=== PATIENT | male | born 1990 | race Hispanic/Latino ===

== ENCOUNTER 2024-11-23 18:48 | Inpatient (IN) | payer BC, SELFPAY ==
[2024-11-23] VITALS (8 sets, daily range): BP systolic 143–197; BP diastolic 85–121; BMI 23.0
[2024-11-23 13:50] LABS: % Basophils 0.6 % (0-2); % Eosinophils 0.3 % (0-6); % Immature Granulocytes 0.3 % (0-0.5); % Lymphocytes 14.2 % (20.5-51.1); % Monocytes 6.8 % (1.7-9.3); % Neutrophils 77.8 % (42.2-75.2); Absolute Lymphocytes 0.4 10^3/uL (1.2-3.4); Absolute Monocytes 0.2 10^3/uL (0.1-0.6); Absolute Neutrophils 2.4 10^3/uL (1.4-6.5); Hematocrit 44.4 % (39.0-52.0); Hemoglobin 15.7 g/dL (13.0-18.0); Mean Corp Hgb Conc. 35.4 g/dL (33.0-37.0); Mean Corpuscular Hgb 32.2 pg (27.0-31.0); Mean Corpuscular Volume 91.2 fL (80.0-94.0); Nucleated Red Blood Cells % 0 % (-); Platelet Count 162 10^3/uL (130-400); Red Blood Cell Count 4.87 10^6/uL (4.70-6.10); Red Cell Dist. Width 12.9 % (11.5-14.5); White Blood Cell Count 3.1 10^3/uL (4.8-10.8)
[2024-11-23 14:04] LABS: Amphetamines Negative (Negative); Barbiturates Negative (Negative); Benzodiazepines Negative (Negative); Buprenorphine Negative (Negative); Cocaine Negative (Negative); Marijuana Negative (Negative); Methadone Negative (Negative); Methamphetamines Negative (Negative); Opiates Negative (Negative); Phencyclidine Negative (Negative); Tricyclic Antidepressants Negative (Negative)
[2024-11-23 14:09] LABS: ALT (SGPT) 439 U/L (0-50); Albumin 5.5 g/dl (3.5-5.0); Alcohol None Detected; Alkaline Phosphatase 119 U/L (38-126); Blood Urea Nitrogen 5 mg/dl (9-20); Calcium 11.5 mg/dl (8.4-10.2); Carbon Dioxide 34 mmol/L (22-30); Chloride 92 mmol/L (98-107); Glucose 107 mg/dl (70-99); Potassium 4.1 mmol/L (3.5-5.1); Sodium 134 mmol/L (135-145); Total Bilirubin 1.2 mg/dl (0.2-1.3); Total Protein 8.8 g/dl (6.3-8.2); eGFR > 60.00
[2024-11-23 14:39] LABS: AST (SGOT) 763 U/L (17-59)
--- NOTE | 2024-11-23 15:30 | ED.GENMED ---
History of Present Illness
General
Chief Complaint: Alcohol Problem
Source: patient
Exam Limitations: none
Time Seen by Provider: 11/23/24 15:07
Nursing documentation reviewed up to this point in time: agreed with
History of Present Illness
History of Present Illness:
34 y/o M
h/o congenital heart disease, bicuspid aortic valve; s/p 3 surgeries
here with shakiness, anxiety and tremors and n/v since yesterday
pt says he usuallyw as drinking alcohol on the weekends and 1-2 beers during the week at night
but then in the past 3 weeks since he has been out of work, he started driking in the morning and about 12-15 beers per day
he vomited his last normal drink approx 11/21 evening aroun d7 pm
he thenthe [facility] here and on the way, about 12 noon, he started havign tremors, anxiety and shakes
he has never had alcohol withdrwal before
he says he notice dtha the thougtht he hallucinated a thunder clap once but otherwise no hallucinations
he did try to sip alcohol and couldn't really tolearet it
no tylenol use
no fever/chills diarrhea
has some upper abd pain LUQ.
Past History
Past History
ED Past Medical History: Other (congential heart disease)
ED Past Surgical History: Cardiac
Social History
Tobacco: Non-smoker
Alcohol: Binge drinker
Drug: None
Personal:
Living: with family
Employment: Employed
Review of Systems
Review of Systems
Allergies reviewed?: Yes
All Other Systems: Not applicable
Phy Exam
Physical Exam
Physical Exam:
GENERAL: Alert , very anxious, tremulous, sweaty
EYE: pupils equal and reactive
NECK: Supple
ENT: o/p clr, dry mouth
CARDIAC: Regular rate and rhythm .
LUNGS: Clear breath sounds bilaterally, no acute respiratory distress, no wheezes/rales/rhonchi
ABDOMEN: Soft, LUQ tendneress; no r/g, no cvat, normal bowel sounds
NEUROLOGICAL: Alert and oriented, no focal neuro deficits, tremor at rest
SKIN: Warm and moist, diaphoretic
MUSCULOSKELETAL: No edema, well perfused. neg trever's sign
PSYCH: very anxious and agitated
ciwa 15
Scores
Withdrawal Assessment of Alcohol
Withdrawal Assessment Completed?: Yes
Nausea and Vomiting: Intermittent nausea with dry heaves
Tactile Disturbances: None
Tremor: Moderate, with patient's arms extended
Auditory Disturbances: Very mild harshness or ability to fighten
Paroxysmal Sweats: Beads of sweat obvious on forehead
Visual Disturbances: Not present
Anxiety: Moderately anxious, or guarded, so anxiety is inferred
Headache, Fullness in Head: Not present
Agitation: Moderately fidgety and restless
Orientation and clouding of sensorium: Oriented and can do serial additions
Total CIWA Score: 21
Alcohol Withdrawal Medication Recommendation: Equal to MSAS >11. Lorazepam 2-4mg IV NOW and re-assess q1hr
Course
Orders/Labs/Results
Orders:
Orders
11/23/24 13:19
Electrocardiogram (*1) Urgent
Reason for Study: Abdominal Pain
11/23/24 13:20
EKG- Treatment ONCE
11/23/24 13:29
Acetaminophen Urgent
Comment: ADD ON
Alcohol Urgent
Complete Blood Count/With Diff Urgent
Comprehensive Metabolic Panel Urgent
Hepatitis A Antibody, Total Urgent
Comment: ADD ON
Hepatitis B Surface Antibody Urgent
Comment: ADD ON
Hepatitis B Surface Antigen Urgent
Comment: ADD ON
Hepatitis C Antibody Urgent
Comment: ADD ON
Lipase Urgent
Comment: ADD ON
Magnesium Urgent
Comment: ADD ON
Phosphorus Urgent
Comment: ADD ON
11/23/24 13:31
Urine Drug Abuse Screen Urgent
Date Specimen was Collected: 11/23/24
Time Specimen was Collected: 13:19
11/23/24 15:07
Add On- LAB Urgent
Tests Added?: lipase
11/23/24 15:29
Lactated Ringers [Lr] 1,000 ml IV BOLUS
Lorazepam [Ativan] 1 mg IV NOW STA
Ondansetron Injectable [Zofran] 4 mg IV NOW STA
11/23/24 15:53
US Abdomen Complete/Upper Urgent
Comment:
Reason For Exam: alcohol abuse, vomiting, lfts high
11/23/24 16:55
Add On- LAB Urgent
Tests Added?: hepatitis panel (a, b suf ab, cynthia ag, c), and tylenol level
11/23/24 17:15
Lorazepam [Ativan] 1 mg IV NOW STA
11/23/24 18:15
Admit/Transfer Patient As Directed
Co-Sign Provider:
Level of Care: Inpatient admission
Assign to:: IMU- Intermediate Care
Physician / Group: frederic muhammad
Diagnosis: Alcohol withdrawal, alcohol abuse, hallucinations, transaminitis
Reason for Hospitalization: Alcohol withdrawal, alcohol abuse, hallucinations, transaminitis
Expected length of stay greater than two midnights?: Yes
ELOS- Estimated Length of Stay in days: 6
I certify the patient meets the requirements for IP care: Yes
Code Status As Directed
Resuscitation Status: Full Code
11/23/24 18:17
Add On- LAB Urgent
Tests Added?: mag, phos
11/23/24 18:19
PRN Pain Medication Management As Directed
May give lesser potent ordered pain med per pt: Yes
preference::
Protocol:: Medication orders for pain may be administered in a
manner that supports deferring to patient preference
when the pt is:
- Requesting an ordered lesser potent pain medication.
Least to most potent pain medications are defined
as: acetaminophen < NSAID < tramadol < opioids
(morphine, oxycodone, hydromorphone).
- Requesting a lesser dose of the same medication IF
ORDERED.
- Requesting a less intrusive route of administration
if both routes are prescribed by the provider (PO <
IV).
11/23/24 19:46
0.9% Sodium Chloride 1000 ml [Nss] 1,000 ml IV 100 mls/hr
0.9% Sodium Chloride [Nss (Preservative Free)] See Protocol IV PRN PRN
FOLic ACID [Folvite] 1 mg 0.9% Sodium Chloride 50 ml [Nss] 50 ml IV DAILYPRN
Lorazepam [Ativan] 1 mg IV Q1HPRN PRN
Lorazepam [Ativan] 1 mg PO Q2HPRN PRN
Lorazepam [Ativan] 2 mg IV Q1HPRN PRN
Phenobarbital Sodium [Phenobarbital] 260 mg 0.9% Sodium Chloride 100 ml [Nss] 100 ml IV NOW
11/23/24 19:46
Case Management Consult Once
Case Management Consult: Other
Comment: Substance abuse counseling
DIETARY CONSULT Routine
Reason for Consult: Nutrition support, possible refeeding guidelines
Activity As Directed
Activity Level: With Assistance
Intake/ Output As Directed
Frequency: Per unit guidelines
MSAS SCORE As Directed
MSAS Score 0-4: Repeat MSAS every 2 hours until 0-4 for three consecutive assessments, then every 4 hours x 48
hours.
MSAS Score 5-7: For MILD withdrawl symptoms. Repeat MSAS and RASS every 2 hours
MSAS Score 8-11: For MODERATE withdrawal symptoms. Repeat MSAS and RASS every 1 hour. Consider ICU or IMU
level of care.
MSAS Score > 11: For SEVERE withdrawal symptoms. Repeat MSAS and RASS every 1 hour. Notify provider, consider
ICU level of care.
MSAS Additional Instructions: If no improvement or no decrease in score from severe to moderate within 12
hours, consult psychiatry
MSAS Notify Provider: Notify provider if patient requires more than 10 mg of Lorazepam in eight hour period.
Pneumatic Compression Sleeves As Directed
Type: Knee high
Vital Signs As Directed
Frequency: Per unit guidelines
Weight As Directed
Frequency: Daily
Ot Eval And Treat Routine
Pt Eval And Treat Routine
Activity Level: With Assistance
DX Deep Vein Thrombosis Video Routine
11/23/24 21:44
B-Hydroxybutyrate Urgent
GGTP Urgent
PT/INR [Prothrombin Time] Urgent
Urinalysis Routine
Date Specimen was Collected: 11/23/24
Time Specimen was Collected: 21:33
11/23/24 22:00
Ondansetron Injectable [Zofran] 4 mg IV Q6HPRN PRN
Valsartan [Diovan] 160 mg PO HS
11/24/24 00:00
Thiamine Injection 200 mg IV Q8
11/24/24 06:00
Cardiovascular Evaluation IN AM
Complete Blood Count/With Diff IN AM
Comprehensive Metabolic Panel IN AM
Magnesium IN AM
11/24/24 08:00
FOLic ACID [Folvite] 1 mg PO DAILY
Phenobarbital Sodium [Phenobarbital] 97.5 mg IV TID
11/25/24 06:00
Complete Blood Count/With Diff IN AM
Comprehensive Metabolic Panel IN AM
11/26/24 06:00
Complete Blood Count/With Diff IN AM
Comprehensive Metabolic Panel IN AM
11/26/24 08:00
Phenobarbital [Luminal] 64.8 mg PO TID
11/26/24 20:00
Thiamine HCl [Vitamin B1] 100 mg PO BID
11/27/24 06:00
Complete Blood Count/With Diff IN AM
Comprehensive Metabolic Panel IN AM
11/28/24 06:00
Complete Blood Count/With Diff IN AM
Comprehensive Metabolic Panel IN AM
11/28/24 08:00
Phenobarbital [Luminal] 32.4 mg PO TID
Abnormal Lab Results
11/23/24
13:29
WBC 3.1 L 10^3/uL
(4.8-10.8)
MCH 32.2 H pg
(27.0-31.0)
Absolute Lymphs (auto) 0.4 L 10^3/uL
(1.2-3.4)
Neutrophils % 77.8 H %
(42.2-75.2)
Lymphocytes % 14.2 L %
(20.5-51.1)
Sodium 134 L mmol/L
(135-145)
Chloride 92 L mmol/L
(98-107)
Carbon Dioxide 34 H mmol/L
(22-30)
BUN 5 L mg/dl
(9-20)
Creatinine 0.6 L mg/dL
(0.7-1.3)
Glucose 107 H mg/dl
(70-99)
Calcium 11.5 H mg/dl
(8.4-10.2)
AST 763 H* U/L
(17-59)
ALT 439 H U/L
(0-50)
Total Protein 8.8 H g/dl
(6.3-8.2)
Albumin 5.5 H g/dl
(3.5-5.0)
Acetaminophen < 10 L ug/ml
(10-30)
11/23/24 13:29
11/23/24 13:29
Vital Signs
Initial and Last Documented VS:
Initial Vital Signs
Temp Pulse Resp BP Pulse Ox
36.7 C 89 18 197/107 100
11/23/24 13:11 11/23/24 13:11 11/23/24 13:11 11/23/24 13:11 11/23/24 13:11
Last Documented Vital Signs
Temp Pulse Resp BP Pulse Ox
36.7 C 75 26 156/93 97
11/23/24 23:00 11/23/24 22:00 11/23/24 22:00 11/23/24 22:00 11/23/24 22:00
MDM/Problems Addressed
Differential Diagnosis Includes:
alcohol withdrawal, pancreatiis, hepatitis
MDM/Problems Addressed:
dick henley 34 y/o M h/o congenital heart defect (bicuspid aortic valve, aortic insuff, s/p 3 surgeries) from out of town
alcohol withdrawal
has bene drinking starting in the [facility] for 3 weeks, 12+ beers daily; 2 days ago vomited a few times; then yesterday drove from [place] and started with withdrawal symptoms at noon; shakiness, nausea, sweats, anxiety, 1 hallucination
has had a few sips of alcohol; LUQ mild pain
hypertensive originaloly with CIWA 15
lfts up 700s/300s; bili/alk phos normal;
us shows gallstones, mild CBD dilation
d/w GI; dr. brown unlikely choledocho normal alk phos and bili
probably alcoholic hepatitis; added on hep panel, tylenol; IVF, ativan x 2
CIWA 9 prior to 2nd dose
*Critical Care Note
Total Time (30-74mins, 75-104mins- exclusive of procedures): Not Applicable
ED Attending Note
-
Portions of this chart may have been created with voice recognition software.� Occasional wrong word or��sound alike� substitutions may have occurred due to the inherent limitations of voice recognition software.
Discharge Plan
Departure
Patient Disposition: Admit
Date of Disposition: 11/23/24
Time of Disposition: 17:16
Admit to: Telemetry
Presentation/result/management discussed w/ accepting MD/DO: Hospitalist
Condition: Fair
Covid-19: Not Applicable
Discharge Problem:
Hepatitis, Alcohol withdrawal
Interventions
Interventions:
*Risk Screen - Suicide Last Done: 11/23/24 19:43
*General Assessment Last Done: 11/23/24 13:11
*Neglect/Abuse Screening Last Done: 11/23/24 13:11
ED- Fall Risk Assessment Last Done: 11/23/24 15:41
*ED COVID-19 Vaccine History Last Done: 11/23/24 19:43
*Nursing Disposition Last Done: 11/23/24 19:48
ED- Neurological Assessment Last Done: 11/23/24 15:41
ED-Psychological Assessment Last Done: 11/23/24 15:41
Discharge Date and Time
Discharge Date/Time: 11/23/24 19:49
[2024-11-23 15:52] LABS: Lipase 145 U/L (23-300)
[2024-11-23] MEDS: ATIVAN 1 MG IV ×2 (15:53→17:20)
[2024-11-23] MEDS: LR 1000 IV (15:54)
[2024-11-23] MEDS: ZOFRAN 4 MG IV (15:54)
[2024-11-23 17:44] LABS: Acetaminophen < 10 ug/ml (10-30)
--- NOTE | 2024-11-23 18:14 | HPS.HSE ---
Family Physician
-
Family Physician: NOT KNOW UNKNOWN - PT DOES
Chief Complaint
-
Nausea, vomiting, hand tremors, alcohol withdrawal
History of Present Illness
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
hours then woke up yesterday p.m. 7-8 had a sip of beer due to tremors in his hands he also had some nausea. He did drink 1 beer then at 12 AM he vomited. This morning according to his he appeared sweaty diaphoretic and shaking on exam in
triage and active alcohol withdrawal. He also reported 1 hallucination to the ER. He states he has plans to leave on Saturday to travel to [place] then leave from [place] back to [place] on Saturday to arrive by [facility]. He believes his
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 He states this is how his
family is his father and brother also wake up in the morning and have a beer before they have their coffee for the day then they started to drink in the afternoon I advised the patient this is alcohol abuse and the effects on his liver and potential
for alcohol withdrawal with seizure and he appeared shocked that consumption of alcohol can cause this.
He has past medical history of hypertension, alcohol abuse, VSD repair at age 8,coartication repair as child. Follows a branch mechanic in [place] had echo in December EF 65% moderate dilated mild hypertrophied left ventricle moderate AI bicuspid
aortic valve hypoplastic descending aorta tiny residual VSD he also had stress test December 2022 that was normal
Medical History
Past Medical History
Past Medical History: Reports Other
Additional Past Medical History:
HTN
Alcohol abuse
VSD repair at age 8,coartication repair as child.
Past Surgical History: Reports Other
Additional Past Surgical History:
VSD repair at age 8,coartication repair as child.
Social History
Tobacco: Non-smoker
Alcohol: Daily (12 beers daily weekends he will drink 12-18 beers during the spring and summer +3 days a week 1 glass of wine last drink 11/22/2024 at 12 AM)
Drug: None
Personal:
Living: With Family
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
Family History
Family History: Other (Father and brother alcohol abuse, father HTN, mother DM 2)
Allergies / Home Medications
Allergies reflects when Allergies were last updated in [facility].
Home Medications with original date entered in [facility]
Allergy/Medication List:
Allergies
Allergy/AdvReac Type Severity Reaction Status Date / Time
No Known Allergies Allergy Verified 11/23/24 13:11
Home Medications
therapeutic multivitamin 1 tab PO HS 11/23/24
valsartan 160 mg tablet 160 mg PO HS 11/23/24
Review of Systems
-
History Source: Patient
A 12 point ROS was completed and negative except as noted: Yes
Constitutional: Denies Fever or Chills
EENT: Denies Sore Throat or Runny Nose
Respiratory: Denies Cough or Trouble Breathing
Cardiac: Denies Chest Pain, Diaphoresis, Palpitations or Syncope
Abdomen/GI: Reports Nausea and Vomiting; Denies Abdominal Pain, Diarrhea, Constipated, Bloody Stools or Black Stools
: Denies Dysuria, Frequency, Flank Pain, Incontinence, Difficulty Voiding or Urgency
Musculoskeletal: Denies Joint Pain or Edema
Skin: Reports Other (Tremors hands); Denies Itching or Rash
Neurological: Denies Dizzy or Headache
Endocrine: Reports No Symptoms
Hematologic/Lymphatic: Reports No Symptoms
Psych: Reports Anxiety
Physical Exam
Vital Signs
Vital Signs
Temp Pulse Resp BP Pulse Ox
98.0 F 78 29 159/88 100
11/23/24 13:11 11/23/24 17:15 11/23/24 17:15 11/23/24 17:00 11/23/24 17:15
Physical Exam
General: Conversant and Other (Tremors bilateral hands); No Pain, Fever or Chills
HEENT: NormoCephalic, Anicteric, Moist mucous membranes, PERRLA, [place] Conjunctivae and No Ptosis
Respiratory: Clear; No Wheezes, Rales or Rhonchi
Cardiac: S1/S2 and Regular Rhythm; No Murmur, Rub, Gallop or Peripheral Edema
Breast: Deferred by me
GI: Soft, Non Tender, Non Distended, Normal Bowel Sounds and No Hepatosplenomegaly
Rectal: Deferred by Provider
Genito-urinary: Deferred by me
Musculoskeletal: No Clubbing, No Cyanosis and No Edema
Skin: Warm and Dry; No Rash or Jaundice
Neuro: AO x 3, No Motor Deficits, Cranial Nerves Intact, No Sensory Deficits and Tremors (Bilateral hands); No Slurred Speech or Facial Droop
Psych: Anxious
Laboratory Results
-
11/23/24 13:29
11/23/24 13:29
Laboratory Results
Total Bilirubin 1.2 mg/dl (0.2-1.3) 11/23/24 13:29
AST 763 U/L (17-59) H* 11/23/24 13:29
ALT 439 U/L (0-50) H 11/23/24 13:29
Alkaline Phosphatase 119 U/L (38-126) 11/23/24 13:29
Lipase 145 U/L (23-300) 11/23/24 13:29
Impression/Plan
-
Impression/plan:
Admit to IMU
#Acute alcohol withdrawal/alcohol abuse
Drinks daily 12+ beers last drink was 11/21/2024 2 days ago
-Patient counseled that he is an alcoholic he needs to seek treatment once he returns back to [place] he was also made aware of his fatty liver elevated liver enzymes
-UDS negative, alcohol negative, acetaminophen<10
-IV LR 1 L given in ER
-IV Ativan 2 mg total given in ER
-Zofran as needed follow QTc
-MSAs screen with protocol
-IV thiamine, IV folate
-Phenobarb taper protocol
-IV Zofran as needed�follow QTc
EKG: NSR 77 bpm, QTc 418 MS, left atrial enlargement no previous EKGs
#Acute transaminitis likely alcoholic with component fatty liver
-Check hepatitis panel
-AST 763, ALT 439, alk phos 119
Will follow CMP
Ultrasound abdomen complete: 1. Small mobile gallstones are present no gallbladder wall thickening or Pericholecystic edema. CBD duct 6.2 mm mildly dilated
2. Hepatomegaly with diffuse echogenicity of the liver suggesting fatty infiltration no focal hepatic lesion
3. Echogenicity in the mid left kidney suspicious for small nephrolith no evidence of pelvic calyceal dilation of either kidney
#HTN�benign
BP 159/88
Continue valsartan 160 mg at bedtime
#VSD repair
Follows a branch mechanic in [place] had echo in December EF 65% moderate dilated mild hypertrophied left ventricle, moderate AI bicuspid aortic valve hypoplastic descending aorta tiny residual VSD he also had stress test December 2022 that was normal
DVT prophylaxis
Subcu Lovenox
Full code
[2024-11-23 18:31] LABS: Hepatitis B Surface Antigen Negative (Negative)
[2024-11-23 18:36] LABS: Phosphorus 3.8 mg/dl (2.5-4.5)
[2024-11-23 18:48] LABS: Hepatitis A Antibody, Total Negative (Negative); Hepatitis B Surface Antibody Positive; Hepatitis C Antibody Negative (Negative)
[2024-11-23] MEDS: NSS 1000 IV (20:24)
[2024-11-23] MEDS: PHENOBARBITAL 104 MG IV (20:26)
[2024-11-23] MEDS: DIOVAN 160 MG PO (21:17)
--- NOTE | 2024-11-23 22:02 | W.PN.UPDATE ---
Update Note
Progress Note Update
Patient seen in conjunction with DIONNE. I concur with the findings on history and physical as well as the assessment and plan.
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
with symptoms of alcohol withdrawal.
Patient drinks 12 pack of beer daily and was recently traveling and not drinking over 24 hours and developing tremors yesterday. He had 1 beer which he vomited. He developed diaphoresis, reported hallucination on arrival in the emergency
department.
On evaluation his blood pressure was 160/85 pulse 89 afebrile and satting 98% on room air. AST 700,ALT 400, lipase negative otherwise normal labs.
Patient with hallucinations, tremors, nausea, vomiting portends high likelihood of delirium tremens.
Admit to imu
- high risk alcohol withdrawal protocol with phenobarbital taper
- IV fluids
- IV thiamine, folate
- continue antihypertensives
- patient from [place], unlikely to f/u with rehab here, case management consulted
DVT PPX - lovenox sq
Code status - full code
[2024-11-23 22:07] LABS: INR 1.06; PT 14.1 Sec (11.4-14.6)
[2024-11-23 22:10] LABS: GGTP 1312 U/L (15-73)
[2024-11-23 22:13] LABS: Urine Albumin 2+ (Neg - Trace); Urine Bilirubin Negative (Negative); Urine Character Clear (Clear); Urine Color Yellow; Urine Glucose Negative (Negative); Urine Ketone Negative (Negative); Urine Leukocyte Negative (Negative); Urine Nitrite Negative (Negative); Urine Occult Blood Negative (Negative); Urine Specific Gravity 1.015 (<1.030); Urine Urobilinogen Negative (Neg - 1+)
[2024-11-23 22:17] LABS: B-Hydroxybutyrate 0.51 mmol/L (0.02-0.27)
[2024-11-23 22:44] LABS: Urine Squamous Cell 0-2 /LPF (Few)
[2024-11-23 22:45] LABS: Urine Red Blood Cell 0-2 /HPF (0-2); Urine White Cell None Seen /HPF (0-5)
[2024-11-23] MEDS: THIAMINE INJECTION 200 MG IV (23:10)
--- NOTE | 2024-11-23 23:33 | PTCARENOTE ---
Rec'd pt from ED RN. Pt AAOx3, spouse at bedside. Pt reports that he has not been treated for alcohol withdrawal in the past, but does drink alcohol daily. Pt denies pain, discomfort, nausea at this time. Does report some diaphoresis and feeling
warm. Pt able to take oral medications whole with water without complication. Pt able to use urinal. IVF running through L forearm, see MAR. SR on playground monitor, 98% on RA, does report hx of HTN. Call neville within reach.
[2024-11-24] VITALS (19 sets, daily range): BP systolic 131–180; BP diastolic 63–96; PULSE 82; O2SAT 98; BMI 23.0
[2024-11-24 06:12] LABS: % Basophils 0.8 % (0-2); % Eosinophils 2.1 % (0-6); % Immature Granulocytes 0.4 % (0-0.5); % Lymphocytes 21.1 % (20.5-51.1); % Neutrophils 68.6 % (42.2-75.2); Absolute Eosinophils 0.1 10^3/uL (0-0.7); Absolute Lymphocytes 0.5 10^3/uL (1.2-3.4); Absolute Monocytes 0.2 10^3/uL (0.1-0.6); Absolute Neutrophils 1.7 10^3/uL (1.4-6.5); Hemoglobin 13.6 g/dL (13.0-18.0); Mean Corp Hgb Conc. 35.8 g/dL (33.0-37.0); Mean Corpuscular Hgb 31.9 pg (27.0-31.0); Mean Platelet Volume 9.5 fL (7.4-10.4); Nucleated Red Blood Cells % 0 % (-); Platelet Count 144 10^3/uL (130-400); Red Blood Cell Count 4.27 10^6/uL (4.70-6.10); Red Cell Dist. Width 12.4 % (11.5-14.5); White Blood Cell Count 2.4 10^3/uL (4.8-10.8)
[2024-11-24 06:19] LABS: ALT (SGPT) 405 U/L (0-50); Albumin 4.4 g/dl (3.5-5.0); Alkaline Phosphatase 98 U/L (38-126); Blood Urea Nitrogen 6 mg/dl (9-20); Calcium 9.3 mg/dl (8.4-10.2); Carbon Dioxide 24 mmol/L (22-30); Chloride 97 mmol/L (98-107); Estimated Creatinine Clearance > 125 ml/min; Glucose 98 mg/dl (70-99); HDL Cholesterol 105 mg/dl; LDL Cholesterol, Calculated 122 mg/dl; Magnesium 1.7 mg/dl (1.6-2.3); Potassium 3.9 mmol/L (3.5-5.1); Sodium 132 mmol/L (135-145); Total Bilirubin 1.3 mg/dl (0.2-1.3); Total Cholesterol 247 mg/dl (50-199); Total Protein 7.1 g/dl (6.3-8.2); Triglyceride 104 mg/dl (10-149); Very Low Density Lipoprotein 20 mg/dl (0-30); eGFR > 60.00
[2024-11-24] MEDS: NSS 1000 IV ×2 (06:26→17:11)
[2024-11-24 06:29] LABS: AST (SGOT) 709 U/L (17-59)
--- NOTE | 2024-11-24 07:38 | W.PN.HOSP.TC ---
Today's Communication/Plan
-
see plan
Assessment / Plan
Assessment / Plan
Mr. 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
[place]) reports to the ER with tremors, nausea/vomiting in setting of not drinking alcohol for 20 hours. He had a witnessed hallucination int he ER.
On evaluation his blood pressure was 160/85 pulse 89 afebrile and satting 98% on room air. AST 700,ALT 400, lipase negative otherwise normal labs.
RUQ US:
1. Small mobile gallstones are present no gallbladder wall thickening or Pericholecystic edema. CBD duct 6.2 mm mildly dilated
2. Hepatomegaly with diffuse echogenicity of the liver suggesting fatty infiltration no focal hepatic lesion
3. Echogenicity in the mid left kidney suspicious for small nephrolith no evidence of pelvic calyceal dilation of either kidney
Acute alcohol withdrawal/alcohol abuse
Drinks daily 12+ beers last drink was 11/21/2024 2 days ago
-UDS negative, alcohol negative, acetaminophen<10
-MSAS screen with protocol
-IV thiamine, IV folate
-Phenobarb taper protocol
-IV Zofran as needed
-per H&P: Patient counseled that he is an alcoholic he needs to seek treatment once he returns back to [place] he was also made aware of his elevated liver enzymes
Acute transaminitis likely alcoholic with component fatty liver
Discriminant Function = 1.7 (nl T. Bili and INR)
-CBD mildly dilated at 6.2mm but no abdominal pain
-Check hepatitis panel
-mildly improved this AM, continue to trend daily
#HTN�benign
BP 159/88
Continue valsartan 160 mg at bedtime
#VSD repair
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
DVT prophylaxis
Subcu Lovenox
Full code
Anticipated Discharge: > 48 hours
Subjective/Interval History
-
Date of Service: November 24, 2024
mild tremors
no abdominal pain
Objective Data
-
Labs:
Laboratory Results
11/23/24 11/24/24
21:44 05:34
WBC 2.4 L*
Hgb 13.6
Hct 38.0 L
Plt Count 144
PT 14.1
INR 1.06
Sodium 132 L
Potassium 3.9
Chloride 97 L
Carbon Dioxide 24
BUN 6 L
Creatinine 0.5 L
Glucose 98
Calcium 9.3 D
Total Bilirubin 1.3
AST 709 H*
ALT 405 H
Alkaline Phosphatase 98
Vital Signs:
Vital Signs
Temp Pulse Resp BP Pulse Ox
98.0 F 78 17 140/92 99
11/24/24 03:00 11/24/24 06:00 11/24/24 06:00 11/24/24 04:00 11/24/24 06:00
I&O
11/23/24 11/24/24 11/25/24
06:59 06:59 06:59
Intake Total 480 / 480
Output Total 650 / 650
Balance -170 / -170
Review of Systems
-
History Source: Patient
All other systems: Reviewed and negative
Physical Exam
-
General: No Apparent Distress
HEENT: PERRLA
Respiratory: Clear to Auscultation; Negative Wheezes
Cardiac: Murmur
GI: Soft and Nontender
Musculoskeletal: No Edema
Skin: Warm and Dry; Negative Rash
Neuro: AO x 3
Psych: Calm
Data Reviewed
-
Diagnostic Radiology: Report Reviewed by me
Labs: Labs Reviewed by me
[2024-11-24] MEDS: FOLVITE 1 MG PO (08:35)
[2024-11-24] MEDS: THIAMINE INJECTION 200 MG IV ×3 (08:35→23:09)
[2024-11-24] MEDS: PHENOBARBITAL 97.5 MG IV ×3 (08:36→21:04)
[2024-11-24 11:46] LABS: Hepatitis B Core Ab, Total Negative (Negative)
--- NOTE | 2024-11-24 12:46 | CM ---
Patient with Hx alcohol abuse, congenital heart defects with Dx Acute alcohol withdrawal. Tox screen noted. Room air. Receiving IV Phenobarb. Per nursing; A/O, MSAS 3. PT/OT; no needs.
Met with patient and Tory;
the patient resides with his in a 2nd floor apartment in [place] with 1 flight outside stairs.
They are here visiting his sister in law and staying at the [facility] in [place].
The patient is usually independent in ADLs and ambulation.
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
He has no DME.
PCP - [facility]
Local Pharmacy - [facility]
CM Consult: Substance Abuse
Offered [facility] for an inpatient or outpatient program or resources, and patient declined, saying his drinking isn't a problem and he has no need. added that patient has no interest in being sober.
No CM d/c needs identified.
Plan home.
--- NOTE | 2024-11-24 16:00 | PTCARENOTE ---
Patient MSAS has been less then 4 this shift. Patient is now alert, calm and stating that he is feeling much better. Patient is out of bed to chair, hand tremors continue. Eating majority of meals with at bedside. Denying pain when asked.
Compliant with plan of care.
[2024-11-24] MEDS: LOVENOX 40 MG SC (17:12)
[2024-11-24] MEDS: DIOVAN 160 MG PO (21:04)
[2024-11-25] VITALS: BP 119/99
[2024-11-25] MEDS: NSS 1000 IV (01:04)
--- NOTE | 2024-11-25 02:51 | PTCARENOTE ---
Pt OOB to chair during this shift. IVF maintained per MAR. Pt denies complaints at this time.
[2024-11-25 02:54] VITALS: BP 157/93
[2024-11-25 04:00] VITALS: BP 144/96
[2024-11-25 04:36] VITALS: BMI 23.2
[2024-11-25 06:00] VITALS: BP 137/73
[2024-11-25 06:29] LABS: INR 1.12; PT 14.7 Sec (11.4-14.6)
[2024-11-25 06:40] LABS: ALT (SGPT) 369 U/L (0-50); AST (SGOT) 514 U/L (17-59); Albumin 4.2 g/dl (3.5-5.0); Alkaline Phosphatase 98 U/L (38-126); Blood Urea Nitrogen 5 mg/dl (9-20); Carbon Dioxide 24 mmol/L (22-30); Chloride 101 mmol/L (98-107); Estimated Creatinine Clearance > 125 ml/min; Glucose 96 mg/dl (70-99); Magnesium 1.7 mg/dl (1.6-2.3); Phosphorus 4.1 mg/dl (2.5-4.5); Potassium 3.5 mmol/L (3.5-5.1); Sodium 134 mmol/L (135-145); Total Protein 6.7 g/dl (6.3-8.2); eGFR > 60.00
--- NOTE | 2024-11-25 07:57 | W.PN.HOSP.TC ---
Today's Communication/Plan
-
expedited Phenobarb taper; earliest safe discharge expressed to patient is tomorrow
Assessment / Plan
Assessment / Plan
Mr. 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
[place]) reports to the ER with tremors, nausea/vomiting in setting of not drinking alcohol for 20 hours. He had a witnessed hallucination int he ER.
On evaluation his blood pressure was 160/85 pulse 89 afebrile and satting 98% on room air. AST 700,ALT 400, lipase negative otherwise normal labs.
RUQ US:
1. Small mobile gallstones are present no gallbladder wall thickening or Pericholecystic edema. CBD duct 6.2 mm mildly dilated
2. Hepatomegaly with diffuse echogenicity of the liver suggesting fatty infiltration no focal hepatic lesion
3. Echogenicity in the mid left kidney suspicious for small nephrolith no evidence of pelvic calyceal dilation of either kidney
Acute alcohol withdrawal/alcohol abuse
Drinks daily 12+ beers last drink was 11/21/2024 2 days ago
-UDS negative, alcohol negative, acetaminophen<10
-MSAS screen with protocol
-IV thiamine, IV folate
-Phenobarb taper - patient and are very anxious to leave. I made the plan that I would do a more rapid taper today (64.8mg in AM and 32.4mg in afternoon) and then watch 24 hours to ensure a safe discharge tomorrow. They are highly considering
leaving today AMA. I discussed with patient and that if they leave today he remains at high risk of withdrawal and that can cause him to drink more alcohol and do more damage to liver. HE states he will not do that. I strongly advised to
avoid air travel in immediate future as it is possible he could have withdrawals and a seizure on the plane.
Acute transaminitis likely alcoholic with component fatty liver
Discriminant Function = 1.7 (nl T. Bili and INR)
-CBD mildly dilated at 6.2mm but no abdominal pain
-Check hepatitis panel
-mildly improved this AM, continue to trend daily
-patient needs to get liver studies checked as outpatient in [place]
#HTN�benign
BP 159/88
Continue valsartan 160 mg at bedtime
#VSD repair
Follows a [facility] [employer] [facility] in [place] had echo in December EF 65% moderate dilated mild hypertrophied left ventricle, moderate AI bicuspid aortic valve hypoplastic descending aorta tiny residual VSD he also had stress test December 2022 that was normal
DVT prophylaxis
Subcu Lovenox
Full code
Anticipated Discharge: 24 - 48 hours
Subjective/Interval History
-
Date of Service: November 25, 2024
patient seen with in room
he is feeling much better and anxious to leave the hospital today
Objective Data
-
Labs:
Laboratory Results
11/25/24
06:01
WBC Pending
Hgb Pending
Hct Pending
Plt Count Pending
PT 14.7 H
INR 1.12
Sodium 134 L
Potassium 3.5
Chloride 101
Carbon Dioxide 24
BUN 5 L
Creatinine 0.4 L
Glucose 96
Calcium 9.0
Total Bilirubin 1.0
AST 514 H*
ALT 369 H
Alkaline Phosphatase 98
Vital Signs:
Vital Signs
Temp Pulse Resp BP Pulse Ox
98.3 F 81 20 137/73 98
11/25/24 04:37 11/25/24 06:00 11/25/24 06:00 11/25/24 06:00 11/25/24 06:00
I&O
11/24/24 11/25/24 11/26/24
06:59 06:59 06:59
Intake Total 480 / 480 2420 / 2420
Output Total 650 / 650 4000 / 4000
Balance -170 / -170 -1580 / -1580
Review of Systems
-
History Source: Patient
All other systems: Reviewed and negative
Physical Exam
-
General: No Apparent Distress
HEENT: PERRLA
Respiratory: Clear to Auscultation; Negative Wheezes
Cardiac: Murmur
GI: Soft and Nontender
Musculoskeletal: No Edema
Skin: Warm and Dry; Negative Rash
Neuro: AO x 3
Psych: Calm
Data Reviewed
-
Diagnostic Radiology: Report Reviewed by me
Labs: Labs Reviewed by me
[2024-11-25 08:00] VITALS: BP 131/87
[2024-11-25 08:00] LABS: % Basophils 0.5 % (0-2); % Eosinophils 2.3 % (0-6); % Immature Granulocytes 0.5 % (0-0.5); % Lymphocytes 27.9 % (20.5-51.1); % Monocytes 10.5 % (1.7-9.3); % Neutrophils 58.3 % (42.2-75.2); Absolute Eosinophils 0.1 10^3/uL (0-0.7); Absolute Lymphocytes 0.6 10^3/uL (1.2-3.4); Absolute Monocytes 0.2 10^3/uL (0.1-0.6); Absolute Neutrophils 1.3 10^3/uL (1.4-6.5); Hematocrit 36.8 % (39.0-52.0); Hemoglobin 12.8 g/dL (13.0-18.0); Mean Corp Hgb Conc. 34.8 g/dL (33.0-37.0); Mean Corpuscular Hgb 31.1 pg (27.0-31.0); Mean Corpuscular Volume 89.5 fL (80.0-94.0); Mean Platelet Volume 9.3 fL (7.4-10.4); Nucleated Red Blood Cells % 0 % (-); Platelet Count 120 10^3/uL (130-400); Red Blood Cell Count 4.11 10^6/uL (4.70-6.10); Red Cell Dist. Width 12.3 % (11.5-14.5); White Blood Cell Count 2.2 10^3/uL (4.8-10.8)
--- NOTE | 2024-11-25 09:23 | W.PN.UPDATE ---
Update Note
Progress Note Update
Patient is AAO x 3, was able to repeat risks of leaving the hospital and has decided to sign out AMA.
I again discussed risks of tremors, seizure and even . I discussed that alcohol withdrawal symptoms progress and are most severe at days 5-7 and warning signs on when to seek medical attention. I advised not to fly until absolutely sure he is
not in withdrawal for at least 24 hours.
is an senior attorney and was at bedside and is in agreement with AMA.
--- NOTE | 2024-11-25 09:29 | PTCARENOTE ---
Patient and stated that they wanted to leave AMA. Notified Dr. Oviedo. All risks with leaving AMA discussed with and patient. Risks discussed were , seizures, please see AMA form. Patient signed AMA form with doctor, nurse and
present. Patient and denied having any questions when asked. Patient got dressed, IV removed and he ambulated out of hospital with with stable gait. Patient was advised to come back to the hospital at anytime for care and advised not to
fly or drive.
--- NOTE | 2024-11-25 13:50 | CM ---
Discharged from IMU by nursing
--- NOTE | 2024-11-25 14:14 | W.DCSUMMARY ---
Discharge Summary
Discharge Data
Date of Admission: 11/23/24
Date of Discharge: 11/25/24
-
Pending Results: No
Hospital Course
Discharging Physician : Dr. Yesenia Oviedo
Disposition : Home
Principal Discharge diagnosis : Acute Alcohol Withdrawal
Hospital Course :
Mr. 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
[place]) reports to the ER with tremors, nausea/vomiting in setting of not drinking alcohol for 20 hours. He had a witnessed hallucination in the ER although patient denied this.
Patient was admitted to medicine and started on a phenobarbital taper. On hospital day 2, patient was eager for discharge. I offered a more rapid taper of the Phenobarbital with plans to observe 24 hours prior to discharge to ensure he was through
withdrawal but patient decided to sign out AMA. I discussed risks of tremors, seizure and even . I discussed that alcohol withdrawal symptoms progress and are most severe at days 5-7 and warning signs on when to seek medical attention. I
advised not to fly until absolutely sure he is not in withdrawal for at least 24 hours. This was discussed with at bedside who was in agreement with plan to leave AMA.
Of note, when patient presented he had elevated liver enzymes AST 763, ALT 439. T. Bili and INR WNL. Liver enzymes improved to AST 514, ALT 369 prior to discharge. He is told this will need to be monitored as outpatient with further work-up.
Liver US showed here showed mildly dilated CBD, patient had no abdominal pain.
Time spent on discharge was 35 minutes.
Important imaging findings :
RUQ US:
1. Small mobile gallstones are present no gallbladder wall thickening or Pericholecystic edema. CBD duct 6.2 mm mildly dilated
2. Hepatomegaly with diffuse echogenicity of the liver suggesting fatty infiltration no focal hepatic lesion
3. Echogenicity in the mid left kidney suspicious for small nephrolith no evidence of pelvic calyceal dilation of either kidney
Procedure findings :
Discharge Plan
-
Patient Disposition: Against Medical Advice
Prescriptions:
No Action
Theragen Tablet
1 tab PO HS
valsartan 160 mg Tablet
160 mg PO HS
Discharge Date and Time
Discharge Date/Time: 11/25/24 09:20
Print Language: DJIBOUTIAN
== END 2024-11-25 09:20 | disposition left against medical advice (07) | DRG 894 ==
LOC: IMU 18:48
PROVIDERS: Clinical Nurse Specialist Family Health; Emergency Medicine; ADMITTING PHYSICIAN Internal Medicine; ATTENDING PHYSICIAN Student in an Organized Health Care Education/Training Program; EMERGENCY PHYSICIAN Emergency Medicine
DX: F10.139 Alcohol abuse with withdrawal, unspecified (principal); R44.3 Hallucinations, unspecified; Z53.29 Procedure and treatment not carried out because of patient's decision for other reasons; F41.9 Anxiety disorder, unspecified; I10 Essential (primary) hypertension; K76.0 Fatty (change of) liver, not elsewhere classified; Z81.1 Family history of alcohol abuse and dependence; Z87.74 Personal history of (corrected) congenital malformations of heart and circulatory system
CPT/HCPCS: 76700; 80053; 80061; 80143; 80306; 81003; 81015; 82010; 82077; 82977; 83690; 83735; 84100; 85025; 85610; 86704; 86706; 86708; 86803; 87340; 93005; 96361; 96374; 96375; 96376; 97162; 97166